=== PATIENT | female | born 1955 | race Caucasian/White ===

== ENCOUNTER 2022-09-03 05:33 | Day surgery (SDC) | payer MEDICARE, MEDICAID ==
[2022-09-02 15:47] VITALS: BMI 19.1
[~2022-09-03 05:33] MED LIST: EPINEPHrine 0.3 MG in Ophthalmic Irrigation Solution 500 ML IRR SCH
[2022-09-03] MEDS ORDERED: fentaNYL Citrate/PF 100 MCG/2 ML SYRINGE ONE (07:16)
[2022-09-03] MEDS ORDERED: Midazolam HCl 2 mg/2 ml Vial ONE (07:16)
[2022-09-03] MEDS ORDERED: Cyclopentolate 1% Opth Drop 2 ML BOT ONE (07:25)
[2022-09-03] MEDS ORDERED: Phenylephrine 2.5% Ophth Soln 5 ML BOT ONE (07:25)
[2022-09-03] MEDS ORDERED: Famotidine/PF 20 mg/2ml Vial ONE (09:32)
[2022-09-03] MEDS ORDERED: PROPOFOL 200 MG/20 ML VIAL ONE (09:35)
[2022-09-03] MEDS ORDERED: PHENYLEPHRINE-NS 100 MCG/ML 10 ML SYRINGE ONE (09:35)
[2022-09-03] MEDS ORDERED: ePHEDrine 50 MG/ML VIAL ONE (09:35)
[2022-09-03] MEDS ORDERED: Ondansetron PF 4 MG/2 ML Vial ONE (09:35)
[2022-09-03] MEDS ORDERED: Acetylcholine 20 MG/2 ML VIAL (OR CHARGE) ONE (09:35)
[2022-09-03] MEDS ORDERED: Bupivacaine 0.75% 10 ML VIAL ONE (09:35)
[2022-09-03] MEDS ORDERED: Lidocaine 4% PF 5 ML AMP ONE (09:35)
== END 2022-09-03 11:35 | disposition home or self-care (01) ==
LOC: SDC 05:33
PROVIDERS: ATTEND Ophthalmology Retina Specialist
PROC: 08RK3JZ Replacement of Left Lens with Synthetic Substitute, Percutaneous Approach (ICD-10-PCS; principal; 2022-09-03)
DX: H27.02 Aphakia, left eye (principal); H43.392 Other vitreous opacities, left eye; I10 Essential (primary) hypertension; E78.5 Hyperlipidemia, unspecified; Z79.899 Other long term (current) drug therapy; Z88.2 Allergy status to sulfonamides; Z88.5 Allergy status to narcotic agent
CPT/HCPCS: J0171; J2250; J2405; J2704; J3490; S0028; V2630